=== PATIENT | male | born 1945 | race Caucasian/White ===

== ENCOUNTER → 2020-05-15 | Outpatient (CLI) | payer MEDICARE ==
[~2020-05-15] MED LIST: DUTA0.5C PO; ESCI20TA PO; SIMV40TA20 PO; TAMS-11 PO
== END | disposition home or self-care (01) ==
LOC: STAR 10:38
PROVIDERS: ATTEND Orthopaedic Surgery
DX: Z01.812 Encounter for preprocedural laboratory examination (principal); Z20.828 Contact with and (suspected) exposure to other viral communicable diseases; I45.10 Unspecified right bundle-branch block; M75.51 Bursitis of right shoulder; M75.121 Complete rotator cuff tear or rupture of right shoulder, not specified as traumatic; M75.21 Bicipital tendinitis, right shoulder
CPT/HCPCS: 87635; 93005

== ENCOUNTER 2020-05-21 08:51 | Day surgery (SDC) | payer MEDICARE ==
[~2020-05-21] VITALS: Ht 175.3 cm; Wt 97.2 kg
[~2020-05-21 08:51] MED LIST changes: +BUPIVACAINE/PF 0.25% ONE; +CLINDAMYCIN 150 MG/ML, 6ML ONE
[2020-05-21] MEDS ORDERED: CHLORHEXIDINE 15 ML UDC MM ONE (09:30)
[2020-05-21] MEDS ORDERED: LACTATED RINGERS 1,000 ML IV SCH (09:30)
[2020-05-21] MEDS ORDERED: MIDAZOLAM 1 MG/ML, 2ML ONE (09:37)
[2020-05-21] MEDS ORDERED: FENTANYL PF 250 MCG/5ML ONE (09:37)
[2020-05-21] MEDS ORDERED: KETOROLAC 30 MG/1 ML ONE (11:07)
[2020-05-21] MEDS ORDERED: SUCCINYLCHOLINE 20 MG/ML, 10ML ONE (11:07)
[2020-05-21] MEDS ORDERED: CEFAZOLIN 1,000 MG ONE (11:07)
[2020-05-21] MEDS ORDERED: DEXAMETHASONE 4 MG/ML, 1ML ONE (11:07)
[2020-05-21] MEDS ORDERED: PROPOFOL 10 MG/ML, 20ML ONE (11:07)
[2020-05-21] MEDS ORDERED: ROCURONIUM 10MG/ML,5ML ONE (11:07)
[2020-05-21] MEDS ORDERED: ONDANSETRON 2MG/ML, 2ML ONE (11:07)
[2020-05-21] MEDS ORDERED: ONDANSETRON 2MG/ML, 2ML IVPush PRN (11:30)
[2020-05-21] MEDS ORDERED: MEPERIDINE/PF 25MG/0.5ML IVPush PRN (11:30)
[2020-05-21] MEDS ORDERED: HYDROmorphone 1 MG/ML, 1ML INJ IV PRN (11:30)
[2020-05-21] MEDS ORDERED: OXYcodone 5 MG/5 ML ORAL.SOL UDC PO PRN (11:30)
[2020-05-21] MEDS ORDERED: PROMETHAZINE 25 MG/ML, 1ML IV PRN (11:30)
[2020-05-21] MEDS ORDERED: ALBUTEROL SULFATE 2.5 MG/3 ML NPPB PRN (11:30)
[2020-05-21] MEDS ORDERED: hydrALAzine 20 MG/ML, 1ML IV PRN (11:30)
[2020-05-21] MEDS ORDERED: DIAZEPAM 5 MG/ML, 2ML IV PRN ×2 (11:30)
[2020-05-21] MEDS ORDERED: KETOROLAC 30 MG/1 ML IV PRN (11:30)
[2020-05-21] MEDS ORDERED: FENTANYL PF 100 MCG/2ML IV PRN (11:30)
[2020-05-21] MEDS ORDERED: METOCLOPRAMIDE 5 MG/ML, 2ML IV PRN (11:30)
[2020-05-21] MEDS ORDERED: LABETALOL 5MG/ML, 20ML IV PRN (11:30)
[2020-05-21] MEDS ORDERED: OXYcodone 5 MG/5 ML ORAL.SOL UDC ONE (12:54)
[2020-05-21] MEDS ORDERED: FENTANYL PF 100 MCG/2ML ONE (12:54)
[2020-05-21] MEDS ORDERED: MEPERIDINE/PF 25MG/ML,1ML ONE (12:54)
== END 2020-05-21 15:25 | disposition home or self-care (01) ==
LOC: OUT 08:51
PROVIDERS: ATTEND Orthopaedic Surgery
DX: S46.011A Strain of muscle(s) and tendon(s) of the rotator cuff of right shoulder, initial encounter (principal); S46.111A Strain of muscle, fascia and tendon of long head of biceps, right arm, initial encounter; S43.431A Superior glenoid labrum lesion of right shoulder, initial encounter; M75.41 Impingement syndrome of right shoulder; M94.211 Chondromalacia, right shoulder; M75.51 Bursitis of right shoulder; M75.01 Adhesive capsulitis of right shoulder; M25.711 Osteophyte, right shoulder; G89.18 Other acute postprocedural pain; J44.9 Chronic obstructive pulmonary disease, unspecified; M19.90 Unspecified osteoarthritis, unspecified site; G47.30 Sleep apnea, unspecified; Z79.899 Other long term (current) drug therapy; Z87.891 Personal history of nicotine dependence; X58.XXXA Exposure to other specified factors, initial encounter; Y93.89 Activity, other specified; Y92.89 Other specified places as the place of occurrence of the external cause; Y99.8 Other external cause status
CPT/HCPCS: 29823; 29826; 29827; 64415; C1713; J0330; J0690; J1100; J1885; J2175; J2250; J2405; J2704; J3010; J7120